=== PATIENT | female | born 1935 | race Caucasian/White ===

== ENCOUNTER 2018-03-21 12:11 | Emergency (ER) | payer MEDICARE, OTHER ==
[~2018-03-21 12:11] MED LIST: ATEN1TAB74; ATOR10; LASI20TA PO; LEVA750T PO; LEVO75TA3 PO; MAXZ; PIOG15 PO; PRED10 PO
[2018-03-21 12:13] VITALS: BP 213/96; PULSE 112; RESP 20; TEMP 98.6; O2SAT 95
[2018-03-21] MEDS ORDERED: SODIUM CHLORIDE 0.9% FLUSH 10 ML FLUSH IVF PRN (12:45)
[2018-03-21] MEDS ORDERED: RESP: ALBUTEROL 2.5 MG/IPRATROPIUM 0.5 MG NEB (SCH) INH ONE (12:45)
[2018-03-21] MEDS ORDERED: methylPREDNISolone SOD SUCC 125 MG/2 ML VIAL IV PUSH ONE (12:45)
--- NOTE | 2018-03-21 12:54 | PD ---
HPI Chief Complaint: Respiratory Symptoms Time Seen by Provider: 12:38 Travel History International Travel<30 days: No Contact w/Intl Traveler<30days: No Traveled to known affect area: No History of Present Illness HPI 82-year-old female complains of cough for the past of several days. She reports examination by Dr. Moctezuma today and his lung examination was concerning so he sent here for further evaluation. She reports no improvement with Mucinex, Coricidin or Tessalon Perles. She has a history of allergies diagnosed a week and a half ago or so. She denies any severe rhinorrhea or GERD symptoms. She reports potentially having early COPD/emphysema however denies it officially carried diagnosis. She does take Lasix daily as well as pro-air. No fever. No chest pain. She denies shortness of breath. PFSH Past Medical History Hx Anticoagulant Therapy: Yes (ASA) Cardiovascular Problems: Yes (CHF) High Cholesterol: Yes Diabetes: Yes (TYPE II) Thyroid Disease: Yes ?: Not Menopausal: Yes Ovarian Cysts: Yes Past Surgical History Appendectomy: Yes Section: Yes (X 3) Other Surgery: Yes (L CAROTID ) Social History Alcohol Use: Yes (rare) Tobacco Use: No (quit 1963) Substance Use: No Allergies-Medications (Allergen,Severity, Reaction): Coded Allergies: cefepime (Verified Adverse Reaction, Unknown, [place], 03/21/18) ceftaroline fosamil (Verified Adverse Reaction, Unknown, [place], 03/21/18 ) Reported Meds & Prescriptions Reported Meds & Active Scripts Active Reported Atorvastatin (Atorvastatin Calcium) 10 Mg Tab 10 Mg PO HS Lasix (Furosemide) 20 Mg Tab 20 Mg PO DAILY Aspirin 81 Mg Chew 81 Mg CHEW DAILY Proair Respiclick Inh (Albuterol Sulfate) 90 Mcg/Act Aerp 2 Puff INH Q4H PRN Prevacid (Lansoprazole) 15 Mg Capdr 15 Mg PO DAILY Ipratropium Nasal 0.06% [place] 2 [place] EACH NARE TID Losartan (Losartan Potassium) 25 Mg Tab 25 Mg PO DAILY Levothyroxine (Levothyroxine Sodium) 75 Mcg Tab 75 Mcg PO DAILY Pioglitazone (Pioglitazone HCl) 15 Mg Tab 15 Mg PO DAILY Review of Systems Except as stated in HPI: all other systems reviewed are Neg General / Constitutional: No: Fever Physical Exam Narrative GENERAL: 82-year-old female pleasant well-nourished well-developed speaking in sentences Vital Signs Date Time Temp Pulse Resp B/P (MAP) Pulse Ox O2 Delivery O2 Flow Rate FiO2 03/21/18 12:13 98.6 112 20 213/96 (135) 95 SKIN: Warm and dry. HEAD: Atraumatic. Normocephalic. EYES: Pupils equal and round. No scleral icterus. No injection or drainage. ENT: No nasal bleeding or discharge. Mucous membranes pink and moist. NECK: Trachea midline. No JVD. CARDIOVASCULAR: Tachycardia. Regular rhythm. RESPIRATORY: Coarse breath sounds bilaterally. Respiratory rate about 20. GASTROINTESTINAL: Abdomen soft, non-tender, nondistended. Hepatic and splenic margins not palpable. MUSCULOSKELETAL: Extremities without clubbing, cyanosis, or edema. No obvious deformities. NEUROLOGICAL: Awake and alert. No obvious cranial nerve deficits. Motor grossly within normal limits. Five out of 5 muscle strength in the arms and legs. Normal speech. PSYCHIATRIC: Appropriate mood and affect; insight and judgment normal. Data Data Last Documented VS Vital Signs Date Time Temp Pulse Resp B/P (MAP) Pulse Ox O2 Delivery O2 Flow Rate FiO2 03/21/18 13:11 20 94 Room Air 03/21/18 12:13 98.6 112 213/96 (135) Orders Orders Complete Blood Count With Diff (03/21/18 12:44) Basic Metabolic Panel (Bmp) (03/21/18 12:44) B-Type Natriuretic Peptide (03/21/18 12:44) Iv Access Insert/Monitor (03/21/18 12:44) Ecg Monitoring (03/21/18 12:44) Oximetry (03/21/18 12:44) Oxygen Administration (03/21/18 12:44) Chest, Single Ap (03/21/18 12:44) Sodium Chloride 0.9% Flush (Ns Flush) (03/21/18 12:45) Methylprednisolone So Succ Inj (Solumedr (03/21/18 12:45) Albuterol-Ipratropium Neb (Duoneb Neb) (03/21/18 12:45) Labs Laboratory Tests Test 03/21/18 13:00 White Blood Count 8.7 TH/MM3 Red Blood Count 4.88 MIL/MM3 Hemoglobin 15.0 GM/DL Hematocrit 44.8 % Mean Corpuscular Volume 91.7 FL Mean Corpuscular Hemoglobin 30.8 PG Mean Corpuscular Hemoglobin Concent 33.6 % Red Cell Distribution Width 15.3 % Platelet Count 219 TH/MM3 Mean Platelet Volume 10.0 FL Neutrophils (%) (Auto) 63.7 % Lymphocytes (%) (Auto) 19.9 % Monocytes (%) (Auto) 9.0 % Eosinophils (%) (Auto) 2.9 % Basophils (%) (Auto) 4.5 % Neutrophils # (Auto) 5.5 TH/MM3 Lymphocytes # (Auto) 1.7 TH/MM3 Monocytes # (Auto) 0.8 TH/MM3 Eosinophils # (Auto) 0.3 TH/MM3 Basophils # (Auto) 0.4 TH/MM3 CBC Comment DIFF FINAL Differential Comment Blood Urea Nitrogen 15 MG/DL Creatinine 0.94 MG/DL Random Glucose 107 MG/DL Calcium Level 9.4 MG/DL Sodium Level 142 MEQ/L Potassium Level 4.8 MEQ/L Chloride Level 108 MEQ/L Carbon Dioxide Level 28.6 MEQ/L Anion Gap 5 MEQ/L Estimat Glomerular Filtration Rate 57 ML/MIN B-Type Natriuretic Peptide 50 PG/ML MDM Medical Decision Making Medical Screen Exam Complete: Yes Emergency Medical Condition: Yes Medical Record Reviewed: Yes Differential Diagnosis pneumonia, CHF, COPD, postnasal drip, GERD Narrative Course CBC & BMP Diagram 03/21/18 13:00 Calcium Level 9.4 The BNP is normal Last Impressions Chest X-Ray 03/21/18 1244 Signed Impressions: Service Date/Time: Wednesday, March 21, 2018 13:17 - CONCLUSION: 1. No acute abnormality or significant interval change. Santi Granados MD There might be a tiny density towards the right cardiophrenic angle. Certainly the patient's had a cough for quite some time and weakness and an 82-year-old that could reflect pneumonia despite the relative absence of fever or leukocytosis. In this scenario a five-day course of azithromycin is considered reasonable as we'll be aggressive symptomatic cough treatment. The patient is agreeable with plan. Will follow-up with Dr Murphy as needed. Diagnosis Primary Impression: Cough Referrals: Orlando Murphy MD call for appointment Med/Other Pt SpecificInfo: Prescription(s) given Scripts Benzonatate (Tessalon Perles) 100 Mg Cap 100 MG PO TID Y for COUGH, #20 CAP 0 Refills Prov: Ellis Seay MD 03/21/18 Albuterol 8.5 GM Inh (Proair Hfa 8.5 GM Inh) 90 Mcg/Act Aer 2 PUFF INH Q6H Y for SHORTNESS OF BREATH for 30 Days, #1 INHALER 2 Refills 108 mcg/actuation Prov: Ellis Seay MD 03/21/18 Guaifenesin-Codeine Liq (Guaifenesin-Codeine Liq) 100-10 Mg/5 Ml Soln 10 ML PO Q6H Y for COUGH for 5 Days, #1 BOTTLE 0 Refills Prov: Ellis Seay MD 03/21/18 Azithromycin (Azithromycin) 250 Mg Tab 250 MG PO DIRECTED for Infection, #6 TAB 0 Refills Take 2 tabs (500 mg) on day 1 then 1 tab daily x 4 days. Prov: Ellis Seay MD 03/21/18 Disposition: 01 DISCHARGE HOME Condition: Stable Ellis Seay MD March 21, 2018 12:54
[2018-03-21 13:11] VITALS: RESP 20; O2SAT 94
[2018-03-21 13:12] LABS: AUTOMATED NEUTROPHIL # 5.5 TH/MM3 (1.8-7.7); BASOPHIL # 0.4 TH/MM3 (0-0.2); BASOPHIL % 4.5 % (0.0-2.0); EOSINOPHIL # 0.3 TH/MM3 (0-0.4); EOSINOPHIL % 2.9 % (0.0-4.0); HEMATOCRIT 44.8 % (35.0-46.0); LYMPH % 19.9 % (9.0-44.0); LYMPHOCYTE # 1.7 TH/MM3 (1.0-4.8); MEAN CELL VOLUME 91.7 FL (80.0-100.0); MEAN CORPUSCULAR HEMOGLOBIN 30.8 PG (27.0-34.0); MEAN CORPUSCULAR HGB CONC 33.6 % (32.0-36.0); MONOCYTE # 0.8 TH/MM3 (0-0.9); NEUT % 63.7 % (16.0-70.0); PLATELET COUNT 219 TH/MM3 (150-450); RED BLOOD COUNT 4.88 MIL/MM3 (4.00-5.30); RED CELL DISTRIBUTION WIDTH 15.3 % (11.6-17.2); WHITE BLOOD COUNT 8.7 TH/MM3 (4.0-11.0)
[2018-03-21 13:25] LABS: BICARBONATE 28.6 MEQ/L (21.0-32.0); CALCIUM 9.4 MG/DL (8.5-10.1)
[2018-03-21 13:29] LABS: CREATININE 0.94 MG/DL (0.50-1.00)
--- NOTE | 2018-03-21 13:44 | RADRPT ---
EXAM DATE/TIME: 03/21/2018 13:17 [facility] COMPARISON: CHEST SINGLE AP, February 09, 2016, 5:40. INDICATIONS : Short of breath and cough. MEDICAL HISTORY : Diabetes mellitus type II. Hypercholesterolemia. Thyroid disease. Ovarian cysts. SURGICAL HISTORY : section.Bilateral knee replacement. Bilateral hip replacement. Bilateral shoulder replacemen t. Spine fusion. Left carotid surgery. ENCOUNTER: Initial ACUITY: 1 day PAIN SCORE: 0/10 LOCATION: Bilateral chest FINDINGS: Mild interstitial prominence similar to previous exam. No new focal pleural-parenchymal opacities. Ca rdiac silhouette is borderline prominent. Redemonstration of bilateral shoulder arthroplasties. [place] us structures are otherwise intact. CONCLUSION: 1. No acute abnormality or significant interval change. Santi Granados MD on March 21, 2018 at 13:37 Board Certified Radiologist. This report was verified electronically.
[2018-03-21] MEDS ORDERED: FURO1TAB62 PO (13:58)
[2018-03-21] MEDS ORDERED: ASPI-516 CHEW (13:58)
[2018-03-21] MEDS ORDERED: IPRA0.06 EACH NARE (13:58)
[2018-03-21] MEDS ORDERED: PIOG15TA5 PO (13:58)
[2018-03-21] MEDS ORDERED: PREV15CA20 PO (13:58)
[2018-03-21] MEDS ORDERED: ATOR10TA15 PO (13:58)
[2018-03-21] MEDS ORDERED: ALBU1AER5 INH (13:58)
[2018-03-21] MEDS ORDERED: LEVO75TA3 PO (13:58)
[2018-03-21] MEDS ORDERED: LOSA25TA PO (13:58)
[2018-03-21] MEDS ORDERED: BENZ100 PO (14:05)
[2018-03-21] MEDS ORDERED: AZIT250T3 PO (14:05)
[2018-03-21] MEDS ORDERED: ALBUAER3 INH (14:05)
[2018-03-21] MEDS ORDERED: GUAI100S5 PO (14:05)
[2018-03-21 14:21] VITALS: BP 191/88; PULSE 98; RESP 20; O2SAT 97
== END 2018-03-21 14:22 | disposition home or self-care (01) ==
LOC: PHED 12:11
DX: R05 Cough (principal); R53.1 Weakness; R00.0 Tachycardia, unspecified; I50.9 Heart failure, unspecified; E78.00 Pure hypercholesterolemia, unspecified; E11.9 Type 2 diabetes mellitus without complications; E07.9 Disorder of thyroid, unspecified; Z87.891 Personal history of nicotine dependence; Z79.82 Long term (current) use of aspirin
CPT/HCPCS: 71045; 80048; 83880; 85025; 94664; 96374; 99284; J2930